=== PATIENT | male | born 1955 | race Caucasian/White ===

== ENCOUNTER 2017-11-09 09:31 | Emergency (ER) | payer OTHER ==
[2017-11-09 09:35] VITALS: BP 127/80
--- NOTE | 2017-11-09 10:00 | EDPHY ---
General - History Smoking Status: Never smoked Time Seen by Provider: 11/09/17 09:50 Narrative: CHIEF COMPLAINT: Laceration HISTORY OF PRESENT ILLNESS: Patient presents with complaints of accidental laceration to his left hand. He was working with a utility knife just prior to arrival at work. He works in construction as a contractor. He states that it slipped off, puncturing the left hand. This is at the base of the left index finger overlying the distal portion of the 2nd metatarsal. He has had moderate bleeding and some tingling in the finger. He has no numbness. No difficulty bending or straightening the left index finger. No injury elsewhere. Tetanus up-to-date. There is pain with palpation and movement that does not radiate. Improved at rest. No other associated complaints or modifying factors. TIME OF INJURY: 30 min prior to arrival TETANUS STATUS: Two [age] eleven MEDICAL/SURGICAL/SOCIAL HISTORY: Uncomplicated medical history. Right-hand dominant. REVIEW OF SYSTEMS: Ten systems reviewed and are negative unless otherwise noted in the HPI EXAMINATION General Appearance: Alert, no distress Head: normocephalic, atraumatic Cardiovascular: Symmetric radial pulses 2+. Brisk cap refill in the left index finger. Neurological: A&O, 2 point and light sensory symmetric in the hands. Quartz Mounter and interossei strength symmetric. Skin: Warm and dry, no rash. 1.5 cm laceration to the left hand, radial side at the distal portion of the 2nd metacarpal just prior to the MCP joint. No pulsatile bleeding. No foreign body. No exposure of the flexor apparatus. Extremities: Tenderness in the left laceration of the hand. No tenderness of the fingers, wrist. Range of motion of the hands and fingers symmetric. DIFFERENTIAL DIAGNOSES: Including but not limited to laceration, laceration with tendon injury, laceration with foreign body MDM: 9:50 a.m. Small laceration to the palm of the left hand just below the 2nd MCP joint. There is no injury to the flexor tendon appearance. He is neurovascular intact distally. I have anesthetize the area. He will need irrigation closure. He does not need a Tdap. There is no indication for x-ray. 10:15 a.m. Wound has been irrigated and closed with excellent approximation. Neuro intact distally with full flexion of the finger. We discussed wound care. We discussed ED precautions. We discussed returning here in 7-10 days for suture removal. He is comfortable this plan and discharged home stable condition. PROCEDURE: Laceration repair Consent: Verbal Location: Left hand, palmar Length of repair: 1.5 cm Complexity: Simple Layer involvement: Single Anesthesia: Local. 1% lidocaine without epinephrine. 5 mL Irrigation: Extensive Debridement: None Procedure description: Following good anesthesia, the wound was copiously irrigated. Wound bed was explored with a sterile glove, and there is no foreign body noted. No injury to the flexor tendon. Wound borders were approximated well with good hemostasis. Tolerated well without complication. Suture/Staple material: 5-0 Prolene, 3 simple ruptured sutures Wound care: Routine as discussed Suture/Staple removal: 7-10 Days SUPERVISION: This patient was independently evaluated without direct involvement of or examination by the attending physician. ED Precautions: Worsening pain. Erythema, edema, cyanosis, pallor, paresthesia or anesthesia. (Paul Daley) Discussion: The patient was evaluated and managed by the Physician Surgical Pathologist. My co- signature indicates that I have reviewed this chart and I agree with the findings and plan of care as documented. I am the secondary supervising physician. (Aarti Granados) - Objective Vital Signs: Initial Vital Signs Temperature (C) 36.8 C 11/09/17 09:32 Heart Rate 71 11/09/17 09:32 Respiratory Rate 16 11/09/17 09:32 Blood Pressure 127/80 H 11/09/17 09:32 O2 Sat (%) 95 11/09/17 09:32 O2 Delivery Mode Room Air Allergies/Adverse Reactions: No Known Allergies Allergy (Unverified 09/29/09 12:40) Home Medications: Medication Instructions Recorded NK [No Known Home Meds] 11/09/17 Departure - Departure Disposition: Home, Routine, Self-Care Clinical Impression: Hand laceration Condition: Good Instructions: Care For Your Stitches (ED), Laceration (ED) Additional Instructions: 1. Thin layer of bacitracin once daily for the next 2 days 2. Keep the wound covered while showering for the next 3 days 3. Daily wound care as discussed 4. Return here for suture removal in 7 days 5. Return here for signs of infection as discussed including warmth, redness, fever, drainage from the site 6. return here for increasing pain surrounding the laceration 7. Do not submerge the wound in any water, hot tub, swimming pool until sutures removed Referrals: Kareem Mederos MD [Primary Care Provider] - As per Instructions Physician,Emergency Dept, [Medical Doctor] - As per Instructions (7-10 days for suture removal)
== END 2017-11-09 10:21 | disposition home or self-care (01) ==
PROC: 0HQGXZZ Repair Left Hand Skin, External Approach (ICD-10-PCS; principal; 2017-11-09)
DX: S61.412A Laceration without foreign body of left hand, initial encounter (principal); W26.0XXA Contact with knife, initial encounter; Y92.69 Other specified industrial and construction area as the place of occurrence of the external cause; Y99.0 Civilian activity done for income or pay; Y93.89 Activity, other specified